=== PATIENT | female | born 1975 | race Caucasian/White ===

== ENCOUNTER 2016-09-21 20:07 | Emergency (ER) | payer OTHER ==
--- NOTE | 2016-09-21 21:59 | DIAGNOSTIC IMAGING REPORT ---
PROCEDURE: CT PELVIS WITH CONTRAST INDICATION: PELVIC PAIN TECHNIQUE: 125 ml Isovue 300 administered IV and axial scans were obtained through the pelvis with coronal and sagittal re-formations. COMPARISON: None. FINDINGS: There is perirectal soft tissue thickening along the medial aspect of the left buttock but no evidence of an abscess. Appendix not clearly identified but no evidence of acute appendicitis. IUD in place. Normal adnexa and bladder. No inflammatory changes or free fluid. Osseous structures are unremarkable IMPRESSION: 1. Cellulitis/phlegmon on the medial aspect of the left buttock but no evidence of an abscess 2. Results discussed with NICOLE Barger
--- NOTE | 2016-09-21 23:27 | ED ORDER SUMMARY ---
..... Patient: MYRTLE ARREDONDO OrderSheet [facility] VisitID: [id number] [place] [address] 41y, F Registration Date/Time: 09/21/2016 ORDER SHEET Weight: 75.7 kg (stated) Allergies: Codeine, Sulfa Antibiotics GENERAL ORDERS: CBC w Diff Urgent (20:29 09/21/2016 EKoroleva P.A.-C) (Ack 20:32 CHagerty ER Register Repairer) (20:46 EHassan R.N.) BMP Urgent (20:29 09/21/2016 EKoroleva P.A.-C) (Ack 20:32 CHagerty ER Register Repairer) (20:46 EHassan R.N.) CT Pelvis w Cont (rectal abscess/ mass) (20:39 09/21/2016 EKoroleva P.A.-C) (Ack 20:42 CHagerty ER Register Repairer) (21:24 EHassan R.N.) POC - Urine hCG (20:53 09/21/2016 EKoroleva P.A.-C) (21:18 EHassan R.N.) PCT (Procalcitonin) Urgent (21:15 09/21/2016 EKoroleva P.A.-C) (21:22 CHagerty ER Register Repairer) Lactate, Serum Urgent (21:15 09/21/2016 EKoroleva P.A.-C) (Ack 21:22 CHagerty ER Register Repairer) (22:01 EHassan R.N.) Culture, Wound Surface (Buttock) (left) Urgent (22:56 09/21/2016 EKoroleva P.A.-C) (Ack 22:59 CHagerty ER Register Repairer) (23:04 EHassan R.N.) MEDICATION ORDERS: Clindamycin PO 300 mg (NOW) (23:26 09/21/2016 EKoroleva P.A.-C) (23:52 EHassan R.N.) IV FLUIDS: IV NS : initial bolus 1000 mL (1000 mL/hr), then 1000 mL/hr for X1 (NOW); Juanjose (20:29 09/21/2016 EKoroleva P.A.-C) (20:46 EHassan R.N.) Dilaudid IV 1 mg (HIGH ALERT MEDICATION, NOW) (20:29 09/21/2016 EKoroleva P.A.-C) (20:46 EHassan R.N.) Dilaudid IV 1 mg (HIGH ALERT MEDICATION, NOW) (21:15 09/21/2016 EKoroleva P.A.-C) (21:22 EHassan R.N.) Valium IV 2 mg (HIGH ALERT MEDICATION, NOW) (22:06 09/21/2016 EKoroleva P.A.-C) (Ack 22:49 JQuivey R.N.) (22:53 JQuivey R.N.) Dilaudid IV 1 mg (HIGH ALERT MEDICATION, NOW) (22:06 09/21/2016 EKoroleva P.A.-C) (Ack 22:49 JQuivey R.N.) (22:53 JQuivey R.N.) ORDER SHEET NOTES: [Electronically signed by Mary Anne Lewis R.N. (23:53 09/21/2016)] [Electronically signed by Christiane Newton P.A.-C (23:53 09/21/2016)] [Electronically locked/signed by Mary Anne Lewis R.N. (23:53 09/21/2016)]
--- NOTE | 2016-09-21 23:27 | ED CLINICAL REPORT ---
Clinical Report - Physicians/Mid Levels [facility] [address] [place] [address] 09/21/2016 20:08 Patient: MYRTLE ARREDONDO Time Seen: 20:30 Sep 21 2016. Arrived- By private vehicle. HISTORY OF PRESENT ILLNESS Chief Complaint: SKIN RASH. This started just prior to arrival and is still present. (Patient presents pain and swelling to her rectum over the last 2 days, spontaneous drainage from the area. Patient presents history of similar with previous surgical excision of such. Denies any fevers. Denies any use of sitz bath. Denies any difficulty with bowel movements.). REVIEW OF SYSTEMS No fever, difficulty breathing, hoarseness, nausea or difficulty with urination. All systems otherwise negative, except as recorded above. PAST HISTORY Problems: Abscess. Abscess of axilla. Additional Surgeries: Anal fistula. Cholecystectomy. Allergies: Codeine. Sulfa Antibiotics. ADDITIONAL NOTES The nursing notes have been reviewed. PHYSICAL EXAM Vital Signs: 09/21/2016 20:20 BP: 124/75. HR: 113. RR: 18. O2 saturation: 100%. Temp: 98.9 F. Pain level now: 10/10. Appearance: Alert. ENT: Ears normal. Nose normal. CVS: Normal heart rate and rhythm. Heart sounds normal. Respiratory: No respiratory distress. Rectal: Perianal cellulitis. Rectal exam nontender. No abscess. Skin: Skin warm. Erythema (tender just left of anus area of erythema, with warmth.). Cellulitis. Extremities: Extremities nontender. Neuro: Oriented X 3. LABS, X-RAYS, AND EKG Laboratory Tests: CBC w Diff: (ALPESH: 09/21/2016 20:45) ( MsgRcvd 09/21/2016 21:14) Final results Test Result Flag Units (Reference) WHITE BLOOD COUNT 24.3 H K/uL (4.5-11.5) RED BLOOD COUNT 4.40 M/uL (4.00-5.20) HEMOGLOBIN 13.4 gm/dL (12.0-16.0) HEMATOCRIT 40.3 % (36.0-46.0) MEAN CELL VOLUME 92 fL (80-100) MEAN CORPUSCULAR HGB 31 pg (26-34) MEAN CORPUSCULAR HGB CONC 33 g/dL (31-37) RED CELL DISTRIBUTION WIDTH 12.4 % (11.6-14.8) PLATELET COUNT 413 H K/uL (150-400) NEUTROPHIL % 83.3 H % (50-75) LYMPH % 9.9 L % (25-40) MONO % 5.1 % (3-14) EOSINOPHIL % 1.3 % (0-4) BASOPHIL % 0.4 % (0-2) [id number]: (ALPESH: 09/21/2016 20:45) ( MsgRcvd 09/21/2016 21:49) Final results Test Result Flag Units (Reference) PROCALCITONIN <0.5 ng/mL (0-0.5) PCT Concentration: Interpretation : Risk/option for action PCT <=0.5 ng/mL : Systemic : Low risk forinfection(sepsis): progression to severeis not likely. : systemic infection.Local bacterial : CAUTION-PCT levelsinfection is : below 0.5 ng/mL do notpossible. : exclude an infection,because localizedinfections (withoutsystemic signs) may beassociated with suchlow levels. If PCT ismeasured very earlyafter a bacterialchallenge (usually <6hours), these valuesmay still be low. Inthis case PCT shouldbe re-assessed 6-24hours later. PCT >0.5 and : Systemic infection: Moderate risk for<= 2 ng/mL : (sepsis) is : progression to severepossible, but : systemic infection.other conditions : The patient should beare known to : closely monitoredelevate PCT. : both clinically andby re-assessing PCTwithin 6-24 hours. PCT > 2 ng/mL : Systemic infection: High risk for(sepsis) is likely: progression to severeunless other : systemic infection.causes are known. : PCT >= 10 ng/mL : Important systemic: High likelihood ofinflammatory : severe sepsis orresponse, almost : septic shock.exclusively due to:severe bacterial :sepsis or septic :shock. : BMP: (ALPESH: 09/21/2016 20:45) ( MsgRcvd 09/21/2016 21:20) Final results Test Result Flag Units (Reference) GLUCOSE 118 H mg/dL (70-110) BUN 6 L mg/dL (7-18) CREATININE 0.6 mg/dL (0.6-1.3) Estimated GFR >60 mL/min Estimated GFR- >60 mL/min Note: Persistent reduction over 3 months in eGFR<60 mL/min/1.73 m2 defines CKD. Patients with eGFR values>=60 mL/min/1.73 m2 may also have CKD if evidence ofpersistent proteinuria. Additional information may be foundat www.kidney.org. SODIUM 143 mmol/L (136-145) POTASSIUM 4.0 mmol/L (3.5-5.1) CHLORIDE 106 mmol/L (98-107) CARBON DIOXIDE 27 mmol/L (21-32) CALCIUM 8.8 mg/dL (8.5-10.1) . Note - Tests: (CT PELVIS: IMPRESSION: 1. Cellulitis/phlegmon on the medial aspect of the left buttock but no evidence of an abscess 2. Results discussed with Rosendo Newton, PAC Electronically Final signed by:Eamon Mcknight MD 09/21/2016 9:58:38 PM). PROGRESS AND PROCEDURES Incision & Drainage of Abscess: Time: 22:09 Sep 21 2016. Time-out completed immediately before the procedure. The abscess is located (marty-rectal). The risks of the procedure, benefits and alternatives were explained. Consent was obtained. Parenteral Dilaudid administered. Local anesthesia provided using 1% lidocaine. The abscess was incised with a #11 surgical blade. A small amount of pus was drained. Sample obtained for cultures. Course of Care: Previous Staph 2014, with sensitivity to bactrim. Patient here in the emergency department with pain, area of swelling and abscess likely, there is drainage drainage, examined with Dr. Montero, area was incised after lidocaine with 30-gauge. Drainage. Culture Previous culture with staff known MRSA. Patient presented clindamycin, will start clindamycin again. Patient urged to do sitz bath at home. Leukocytosis with no signs of lactic acidosis or pro calcitonin and elevation. Patient now normal cardiac,Sirs criteria met, nonseptic otherwise. Antibiotics started. 09/21/2016 23:40 BP: 104/54. HR: 78. RR: 14. O2 saturation: 100%. Temp: 98.7 F. Pain level now: 6/10. Patient is stable. Symptoms better. Patient/family counseled. Disposition: Discharged. Condition: good. CLINICAL IMPRESSION Abscess to the perirectal region. INSTRUCTIONS (sitz bath follow up with dr in 2-3 days). Prescription Medications: Zofran (orally disintegrating tablets) 4 mg: take 1 orally every 6 hours for 5 days. Dispense fifteen (15). No refill. Substitution is permissible. Clindamycin 300 mg: take 1 capsule orally every 8 hours for 10 days. No refill. Oxycodone 5 mg tablets: take 1 orally every 6 hours as needed for pain. Dispense twenty (20). No refill. OTC Medications: Colace 100 mg capsules (available over the counter): take 1 capsule orally, twice daily and for 10 days, as needed for constipation, until symptoms improve. No refill. Substitution is permissible. Follow-up: Follow up with your doctor in three days. Understanding of the discharge instructions verbalized by patient. (Electronically signed by Christiane Newton P.A.-C 09/21/2016 23:53)
--- NOTE | 2016-09-21 23:27 | ED ORDER SUMMARY ---
..... Patient: MYRTLE ARREDONDO OrderSheet [facility] VisitID: [id number] [place] [address] 41y, F Registration Date/Time: 09/21/2016 ORDER SHEET Weight: 75.7 kg (stated) Allergies: Codeine, Sulfa Antibiotics GENERAL ORDERS: CBC w Diff Urgent (20:29 09/21/2016 EKoroleva P.A.-C) (Ack 20:32 CHagerty ER Import Coordination And Production Head) (20:46 EHassan R.N.) BMP Urgent (20:29 09/21/2016 EKoroleva P.A.-C) (Ack 20:32 CHagerty ER Import Coordination And Production Head) (20:46 EHassan R.N.) CT Pelvis w Cont (rectal abscess/ mass) (20:39 09/21/2016 EKoroleva P.A.-C) (Ack 20:42 CHagerty ER Import Coordination And Production Head) (21:24 EHassan R.N.) POC - Urine hCG (20:53 09/21/2016 EKoroleva P.A.-C) (21:18 EHassan R.N.) PCT (Procalcitonin) Urgent (21:15 09/21/2016 EKoroleva P.A.-C) (21:22 CHagerty ER Import Coordination And Production Head) Lactate, Serum Urgent (21:15 09/21/2016 EKoroleva P.A.-C) (Ack 21:22 CHagerty ER Import Coordination And Production Head) (22:01 EHassan R.N.) Culture, Wound Surface (Buttock) (left) Urgent (22:56 09/21/2016 EKoroleva P.A.-C) (Ack 22:59 CHagerty ER Import Coordination And Production Head) (23:04 EHassan R.N.) MEDICATION ORDERS: Clindamycin PO 300 mg (NOW) (23:26 09/21/2016 EKoroleva P.A.-C) (23:52 EHassan R.N.) IV FLUIDS: IV NS : initial bolus 1000 mL (1000 mL/hr), then 1000 mL/hr for X1 (NOW); Juanjose (20:29 09/21/2016 EKoroleva P.A.-C) (20:46 EHassan R.N.) Dilaudid IV 1 mg (HIGH ALERT MEDICATION, NOW) (20:29 09/21/2016 EKoroleva P.A.-C) (20:46 EHassan R.N.) Dilaudid IV 1 mg (HIGH ALERT MEDICATION, NOW) (21:15 09/21/2016 EKoroleva P.A.-C) (21:22 EHassan R.N.) Valium IV 2 mg (HIGH ALERT MEDICATION, NOW) (22:06 09/21/2016 EKoroleva P.A.-C) (Ack 22:49 JQuivey R.N.) (22:53 JQuivey R.N.) Dilaudid IV 1 mg (HIGH ALERT MEDICATION, NOW) (22:06 09/21/2016 EKoroleva P.A.-C) (Ack 22:49 JQuivey R.N.) (22:53 JQuivey R.N.) ORDER SHEET NOTES: [Electronically signed by Mary Anne Lewis R.N. (23:53 09/21/2016)] [Electronically signed by Christiane Newton P.A.-C (23:53 09/21/2016)] [Electronically locked/signed by Mary Anne Lewis R.N. (23:53 09/21/2016)]
--- NOTE | 2016-09-21 23:27 | ED NURSING NOTES ---
Clinical Report - Nurses [facility] [address] [place] [address] 09/21/2016 20:08 Patient: MYRTLE ARREDONDO TRIAGE Triage time 2020 PM. Acuity: LEVEL 3. Chief Complaint: (cyst in between buttocks). Alert. No acute distress. SEPSIS SCREEN: Sepsis Screen. Negative (no infection suspected/documented). --20:28 Mary Anne Lewis R.N. 20:20 09/21/16. BP: 124/75. HR: 113. RR: 18. O2 saturation: 100%. Temp: 98.9 F (oral). Pain level now: 02/18. --20:28 Mary Anne Lewis R.N. Weight: 75.7 kg stated. Height/Length: 67 inches Per Patient. BMI: 26.2. --20:21 Mary Anne Lewis R.N. Medications None. --23:53 Mary Anne Lewis R.N. Allergies Codeine. Sulfa Antibiotics. --20:22 Mary Anne Lewis R.N. Medication/allergy information source: the patient. --20:28 Mary Anne Lewis R.N. History Arrived by private vehicle. Historian: patient. Unaccompanied. Primary physician (None). ( Pt states shaved about a week ago and approximately 3 days ago noticed a bump/cyst like in between her left buttocks area which is causing her pain and discomfort. Pt has had some chills, constipation and feeling nauseous. Pt states that had something similar which end it up having to have surgery. Here to get it checked out). This is a new problem. (3). She has had fever. No weakness, cough, difficulty breathing or skin rash. Denies muscle aches. Treatment ETL DATABASE DEVELOPER: (aleve). PAST MEDICAL HX: Immunizations: up-to-date. SOCIAL HX: Heavy tobacco smoker- less than 1 pack per day. No alcohol use or drug use. No infectious disease exposure. ABUSE ASSESSMENT: No report of abuse. SELF HARM ASSESSMENT: A self harm assessment was performed. The patient answered "no" to the question "Do you have thoughts of harming or killing yourself?" and "Have you recently had thoughts about harming or killing others?". FALL RISK ASSESSMENT: Fall risk assessment completed. No fall risk identified. NUTRITIONAL RISK ASSESSMENT: The nutritional risk assessment revealed no deficiencies. FUNCTIONAL ASSESSMENT: Functional assessment: no impairments noted. LEARNING NEEDS ASSESSMENT: The learning needs assessment revealed no barriers. SKIN INTEGRITY ASSESSMENT: Skin integrity risk assessment completed. No skin integrity risk identified. --20:28 Mary Anne Lewis R.N. PROBLEMS: Abscess. Abscess of axilla. --20:22 Mary Anne Lewis R.N. ADDITIONAL SURGERIES: Anal fistula. Cholecystectomy. --20:22 Mary Anne Lewis R.N. Interventions ID band on patient. --20:28 Mary Anne Lewis R.N. PHYSICAL ASSESSMENT Ambulatory to room. GENERAL / NEURO / PSYCH: Alert. Oriented X 4. Appears in pain. HEENT: Mucous membranes are pink. RESPIRATORY: Respirations not labored. Chest nontender. Breath sounds within normal limits. CVS: Capillary refill less than 2 seconds. Pulses within normal limits. GI / : Abdomen soft and nontender. SKIN: Skin intact. Skin is warm and dry. Normal skin turgor. --20:31 Mary Anne Lewis R.N. NURSING PROGRESS NOTES The initial plan of care for this patient has been created. Patient gowned. Warming measures: blanket applied. Reassurance given. Two patient identifiers checked. Call light placed in reach. Side rails up x 1. Bed placed in lowest position. Patient ready for evaluation- PA notified. --20:31 Mary Anne Lewis R.N. 20:41 09/21/2016 Site #1 started via IV in the left antecubital space with an 20g angiocath; two attempts. Blood drawn: rainbow set. Labeled in the presence of the patient and sent to the lab. --20:46 Mary Anne Lewis R.N. 20:46 09/21/2016 Started bag #1 1000 mL IV Fluids IV NS (Saline); at 1000 mL/hr over 1 hour(s) via site #1 via IV pump. Allergies verified and confirmed 5 rights. Completed per protocol. --20:46 Mary Anne Lewis R.N. 20:46 09/21/2016 Dilaudid (HYDROmorphone HCl PF) IVP 1 mg given over 30 second(s) via site #1. Allergies verified, confirmed 5 rights and sedative warning given to the patient. IV patency established. IV site checked: no pain, redness, or swelling. IV flushed thoroughly pre- and post-medication administration. IVP given by RN. --20:46 Mary Anne Lewis R.N. Patient informed of need for urine sample. --20:57 Cliff Marino R.N. ( POC neg, waiting on CT). --21:19 Mary Anne Lewis R.N. 21:22 09/21/2016 Dilaudid (HYDROmorphone HCl PF) IVP 1 mg given over 30 second(s) via site #1. Allergies verified, confirmed 5 rights and sedative warning given to the patient. IV patency established. IV site checked: no pain, redness, or swelling. IV flushed thoroughly pre- and post-medication administration. IVP given by RN. --21:22 Mary Anne Lewis R.N. 21:22 09/21/16. BP: 104/58. HR: 81. RR: 14. O2 saturation: 100% on room air. Temp: 98.3 F. Pain level now: 8. --21:24 Mary Anne Lewis R.N. Reassurance given. The patient is calm. Overall patient status- she states feels the same. Patient transported to CT. (3 PM). Two patient identifiers checked. Call light placed in reach. --21:24 Mary Anne Lewis R.N. 21:00 09/21/2016 Dilaudid IVP Response: no adverse reaction symptoms are the same. The patient feels the same. --22:02 Mary Anne Lewis R.N. 22:02 09/21/2016 Dilaudid IVP Response: no adverse reaction pain is improving. Symptoms have improved the patient feels the same. --22:02 Mary Anne Lewis R.N. Patient returned from CT. ([id number]). --22:02 Mary Anne Lewis R.N. 22:48 09/21/2016 Valium (Diazepam) IVP 2 mg given over 2 minute(s) via site #1. Allergies verified, confirmed 5 rights and sedative warning given to the patient. IV patency established. IV site checked: no pain, redness, or swelling. IV flushed thoroughly pre- and post-medication administration. --22:53 Cliff Marino R.N. 22:50 09/21/2016 Dilaudid (HYDROmorphone HCl PF) IVP 1 mg given over 2 minute(s) via site #1. Allergies verified, confirmed 5 rights and sedative warning given to the patient. IV patency established. IV site checked: no pain, redness, or swelling. IV flushed thoroughly pre- and post-medication administration. --22:53 Cliff Marino R.N. 22:56 09/21/2016 IV Fluids IV NS Bag Change: bag #1 infused. Total amount infused: 1000. STARTED bag #2 at 1000 mL/hr. --22:56 Cliff Marino R.N. 23:04 09/21/16. BP: 110/64 (regular adult cuff) taken on the left arm, via an automated monitor, while lying. HR: 87. RR: 14. O2 saturation: 100% on room air. Temp: 98.7 F (oral). Pain level now: 11/18. --23:05 Mary Anne Lewis R.N. Pulse oximeter and NIBP monitor placed on patient. Reassurance given. The patient is calm and resting quietly. Overall patient status is the same- she states feels better. ( Valium and dilaudid given as ordered. Will monitor). Patient identifiers checked. --23:05 Mary Anne Lewis R.N. 23:42 09/21/2016 Clindamycin PO Capsules 300 mg given. Allergies verified and confirmed 5 rights. --23:52 Mary Anne Lewis R.N. 23:42 09/21/2016 IV Fluids IV NS Discontinued: bag #2 infused upon discharge. Total amount infused: 1800 mL. IV patency established. IV site checked: no pain, redness, or swelling. IV flushed thoroughly. --23:52 Mary Anne Lewis R.N. DISPOSITION / DISCHARGE 23:43 09/21/2016 Site #1 removed upon discharge. Manual pressure, pressure dressing, bandaid and bandage applied. --23:43 Mary Anne Lewis R.N. Departure time: 2353 PM. Condition at departure: improved and stable. The goals identified in the patient's plan of care were met. No learning barriers present. Discharge instructions provided and reviewed with the patient. Reviewed medication(s) side effects, precautions, dosing and course information. Prescription(s) given to the patient. Activity restrictions reviewed. Patient verbalized understanding. Written instructions provided in Armenian. The patient was discharged by the physician accounts receivable assistant. She was discharged home and accompanied by internet site designer. She left the Emergency Department ambulatory and via private vehicle. Optical Goods Drill Operator driving. FALL RISK ASSESSMENT: Fall risk assessment completed. No fall risk identified. --23:52 Mary Anne Lewis R.N. 23:40 09/21/16. BP: 104/54. HR: 78. RR: 14. O2 saturation: 100% on room air. Temp: 98.7 F (oral). Pain level now: 10/19. --23:52 Mary Anne Lewis R.N. Locked/Released at 09/21/2016 23:53 by Mary Anne Lewis R.N.
--- NOTE | 2016-09-21 23:54 | ED MED RECONCILIATION SUMMARY ---
Patient: MYRTLE ARREDONDO Medication Reconciliation Report [facility] VisitID: [id number] [address] [place] [address] 41y, F Registration Date/Time: 09/21/2016 Weight: 75.7 kg Height/Length: 67 in. BMI: 26.2 ALLERGIES: Codeine, Sulfa Antibiotics The patient's Home Medications are listed below: NONE. The source(s) of the original Home Medication information: patient The following Medications were given to the patient in the Emergency Department: IV NS IV Fluids bolus 0, then 1000 mL/hr, administered: 09/21/2016 8:46:00 PM Dilaudid [IVP] IVP 1 mg, administered: 09/21/2016 8:46:00 PM Dilaudid [IVP] IVP 1 mg, administered: 09/21/2016 9:22:00 PM Valium [IVP] IVP 2 mg, administered: 09/21/2016 10:48:00 PM Dilaudid [IVP] IVP 1 mg, administered: 09/21/2016 10:50:00 PM Clindamycin [PO] PO 300 mg, administered: 09/21/2016 11:42:00 PM The following Medications were prescribed to the patient: Zofran (orally disintegrating tablets) 4 mg: take 1 orally every 6 hours for 5 days. Dispense fifteen (15). No refill. Substitution is permissible. -- Christiane Newton, P.A.-C Clindamycin 300 mg: take 1 capsule orally every 8 hours for 10 days. No refill. -- Christiane Newton, P.A.-C Colace 100 mg capsules (available over the counter): take 1 capsule orally, twice daily and for 10 days, as needed for constipation, until symptoms improve. No refill. Substitution is permissible. -- Christiane Newton, P.A.-C Oxycodone 5 mg tablets: take 1 orally every 6 hours as needed for pain. Dispense twenty (20). No refill. -- Christiane Newton, P.A.-C
--- NOTE | 2016-09-21 23:54 | ED MAR SUMMARY ---
..... Medication Administration Record [facility] [address] [place] [address] Patient: MYRTLE ARREDONDO Visit ID: [id number] 41y, F Weight: 75.7 kg Height/Length: 67 in BMI: 26.2 ALLERGIES: Codeine, Sulfa Antibiotics Start 20:46 09/21/2016 Mary Anne Lewis R.N., Stop 23:42 09/21/2016 Mary Anne Lewis R.N. Medication Administered: IV NS (SALINE), Dose: IV Fluids over 1 hour(s), Rate: 1000 mL/hr, Dispensed: 1000 mL bag, Site: #1 left AC. Medication Ordered: IV NS : initial bolus 1000 mL (1000 mL/hr), then 1000 mL/hr for X1 (NOW); Juanjose. Given 20:46 09/21/2016 Mary Anne Lewis R.N. Medication Administered: DILAUDID [IVP] (HYDROMORPHONE HCL PF), Dose: 1 mg IVP over 30 second(s), Site: #1 left AC. Medication Ordered: Dilaudid IV 1 mg (HIGH ALERT MEDICATION, NOW). Given 21:09/21/2016 Mary Anne Lewis R.N. Medication Administered: DILAUDID [IVP] (HYDROMORPHONE HCL PF), Dose: 1 mg IVP over 30 second(s), Site: #1 left AC. Medication Ordered: Dilaudid IV 1 mg (HIGH ALERT MEDICATION, NOW). Given 22:48 09/21/2016 Cliff Marino R.N. Medication Administered: VALIUM [IVP] (DIAZEPAM), Dose: 2 mg IVP over 2 minute(s), Site: #1 left AC. Medication Ordered: Valium IV 2 mg (HIGH ALERT MEDICATION, NOW). Given 22:50 09/21/2016 Cliff Marino R.N. Medication Administered: DILAUDID [IVP] (HYDROMORPHONE HCL PF), Dose: 1 mg IVP over 2 minute(s), Site: #1 left AC. Medication Ordered: Dilaudid IV 1 mg (HIGH ALERT MEDICATION, NOW). Given 23:09/21/2016 Mary Anne Lewis R.N. Medication Administered: CLINDAMYCIN [PO], Dose: 300 mg Capsules PO. Medication Ordered: Clindamycin PO 300 mg (NOW).
--- NOTE | 2016-09-21 23:54 | ED DISCHARGE INSTRUCTIONS ---
Patient: MYRTLE ARREDONDO General Instructions [facility] VisitID: [id number] [place] [address] 41y, F Registration Date/Time: 09/21/2016 Abscess to the perirectal region. INSTRUCTIONS (sitz bath follow up with dr in 2-3 days). Prescription Medications: Zofran (orally disintegrating tablets) 4 mg: take 1 orally every 6 hours for 5 days. Dispense fifteen (15). No refill. Substitution is permissible. Clindamycin 300 mg: take 1 capsule orally every 8 hours for 10 days. No refill. Oxycodone 5 mg tablets: take 1 orally every 6 hours as needed for pain. Dispense twenty (20). No refill. OTC Medications: Colace 100 mg capsules (available over the counter): take 1 capsule orally, twice daily and for 10 days, as needed for constipation, until symptoms improve. No refill. Substitution is permissible. Follow-up: Follow up with your doctor in three days. Understanding of the discharge instructions verbalized by patient. ADDITIONAL INFORMATION Abscess [Incision & Drainage] An abscess (sometimes called a boil) occurs when bacteria get trapped under the skin and begin to grow. Pus forms inside the abscess as the body responds to the bacteria. An abscess can occur with an insect bite, ingrown hair, blocked oil gland, pimple, cyst, or puncture wound. Treatment of your abscess has required an incision to drain the pus. If the abscess pocket was large, a gauze packing may have been inserted. This will need to be removed and possibly replaced on your next visit. Antibiotics are not required in the treatment of a simple abscess, unless the infection is spreading into the skin around the wound (known as cellulitis). Healing of the wound will take about one to two weeks depending on the size of the abscess. Healthy tissue will grow from the bottom and sides of the opening until it seals over. Home Care: The wound may drain for the first two days. Cover the wound with a clean dry dressing. If the dressing becomes soaked with blood or pus, change it. If a gauze packing was placed inside the abscess cavity, you may be advised to remove it yourself. You may do this in the shower. Once the packing is removed, you should wash the area in the shower or bath 3 to 4 times a day, until the skin opening has closed. If you were prescribed antibiotics, take them as directed until they are all gone. You may use acetaminophen (Tylenol) or ibuprofen (Motrin, Advil) to control pain, unless another pain medicine was prescribed. [ NOTE: If you have liver disease or ever had a stomach ulcer, talk with your doctor before using these medicines.] Follow Up with your doctor as advised by our staff. If a gauze packing was inserted in your wound, it should be removed in 1-2 days. Check your wound every day for the signs of worsening infection listed below. Get Prompt Medical Attention if any of the following occur: Increasing redness or swelling Red streaks in the skin leading away from the wound Increasing local pain or swelling Continued pus draining from the wound two days after treatment Fever of 100.4F (38C) or higher, or as directed by your healthcare provider Ondansetron Oral disintegrating tablet What is this medicine? ONDANSETRON (on GERSON se talat) is used to treat nausea and vomiting caused by chemotherapy. It is also used to prevent or treat nausea and vomiting after surgery. How should I use this medicine? These tablets are made to dissolve in the mouth. Do not try to push the tablet through the foil backing. With dry hands, peel away the foil backing and gently remove the tablet. Place the tablet in the mouth and allow it to dissolve, then swallow. While you may take these tablets with water, it is not necessary to do so. Talk to your bat carrier regarding the use of this medicine in children. Special care may be needed. What side effects may I notice from receiving this medicine? Side effects that you should report to your doctor or health career specialist as soon as possible: allergic reactions like skin rash, itching or hives, swelling of the face, lips, or tongue breathing problems dizziness fast or irregular heartbeat feeling faint or lightheaded, falls fever and chills swelling of the hands and feet tightness in the chest Side effects that usually do not require medical attention (report to your doctor or health career specialist if they continue or are bothersome): constipation or diarrhea headache What may interact with this medicine? Do not take this medicine with any of the following medications: -apomorphine -cisapride -dofetilide -dronedarone -pimozide -thioridazine -ziprasidone This medicine may also interact with the following medications: -carbamazepine -phenytoin -rifampicin -tramadol -other medicines that prolong the QT interval (cause an abnormal heart rhythm) What if I miss a dose? If you miss a dose, take it as soon as you can. If it is almost time for your next dose, take only that dose. Do not take double or extra doses. Where should I keep my medicine? Keep out of the reach of children. Store between 2 and 30 degrees C (36 and 86 degrees F). Throw away any unused medicine after the expiration date. What should I tell my health care provider before I take this medicine? They need to know if you have any of these conditions: heart disease history of irregular heartbeat liver disease low levels of magnesium or potassium in the blood an unusual or allergic reaction to ondansetron, granisetron, other medicines, foods, dyes, or preservatives or trying to get breast-feeding What should I watch for while using this medicine? Check with your doctor or health career specialist as soon as you can if you have any sign of an allergic reaction. Clindamycin Hydrochloride Oral capsule What is this medicine? CLINDAMYCIN (KLIN da ERUM sin) is a lincosamide antibiotic. It is used to treat certain kinds of bacterial infections. It will not work for colds, flu, or other viral infections. How should I use this medicine? Take this medicine by mouth with a full glass of water. Follow the directions on the prescription label. You can take this medicine with food or on an empty stomach. If the medicine upsets your stomach, take it with food. Take your medicine at regular intervals. Do not take your medicine more often than directed. Take all of your medicine as directed even if you think your are better. Do not skip doses or stop your medicine early. Talk to your bat carrier regarding the use of this medicine in children. Special care may be needed. What side effects may I notice from receiving this medicine? Side effects that you should report to your doctor or health career specialist as soon as possible: allergic reactions like skin rash, itching or hives, swelling of the face, lips, or tongue dark urine pain on swallowing redness, blistering, peeling or loosening of the skin, including inside the mouth unusual bleeding or bruising unusually weak or tired yellowing of eyes or skin Side effects that usually do not require medical attention (report to your doctor or health career specialist if they continue or are bothersome): diarrhea itching in the rectal or genital area joint pain nausea, vomiting stomach pain What may interact with this medicine? chloramphenicol erythromycin kaolin products What if I miss a dose? If you miss a dose, take it as soon as you can. If it is almost time for your next dose, take only that dose. Do not take double or extra doses. Where should I keep my medicine? Keep out of the reach of children. Store at room temperature between 20 and 25 degrees C (68 and 77 degrees F). Throw away any unused medicine after the expiration date. What should I tell my health care provider before I take this medicine? They need to know if you have any of these conditions: kidney disease liver disease stomach problems like colitis an unusual or allergic reaction to clindamycin, lincomycin, or other medicines, foods, dyes like tartrazine or preservatives or trying to get breast-feeding What should I watch for while using this medicine? Tell your doctor or healthcare professional if your symptoms do not start to get better or if they get worse. Do not treat diarrhea with over the counter products. Contact your doctor if you have diarrhea that lasts more than 2 days or if it is severe and watery. Docusate Sodium Oral tablet What is this medicine? DOCUSATE (doc CUE sayt) is stool softener. It helps prevent constipation and straining or discomfort associated with hard or dry stools. How should I use this medicine? Take this medicine by mouth with a glass of water. Follow the directions on the label. Take your doses at regular intervals. Do not take your medicine more often than directed. Talk to your bat carrier regarding the use of this medicine in children. While this medicine may be prescribed for children as young as 2 years for selected conditions, precautions do apply. What side effects may I notice from receiving this medicine? Side effects that you should report to your doctor or health career specialist as soon as possible: allergic reactions like skin rash, itching or hives, swelling of the face, lips, or tongue Side effects that usually do not require medical attention (report to your doctor or health career specialist if they continue or are bothersome): diarrhea stomach cramps throat irritation What may interact with this medicine? mineral oil What if I miss a dose? If you miss a dose, take it as soon as you can. If it is almost time for your next dose, take only that dose. Do not take double or extra doses. Where should I keep my medicine? Keep out of the reach of children. Store at room temperature between 15 and 30 degrees C (59 and 86 degrees F). Throw away any unused medicine after the expiration date. What should I tell my health care provider before I take this medicine? They need to know if you have any of these conditions: nausea or vomiting severe constipation stomach pain sudden change in bowel habit lasting more than 2 weeks an unusual or allergic reaction to docusate, other medicines, foods, dyes, or preservatives or trying to get breast-feeding What should I watch for while using this medicine? Do not use for more than one week without advice from your doctor or health career specialist. If your constipation returns, check with your doctor or health career specialist. Drink plenty of water while taking this medicine. Drinking water helps decrease constipation. Stop using this medicine and contact your doctor or health career specialist if you experience any rectal bleeding or do not have a bowel movement after use. These could be signs of a more serious condition. You have been given the following additional information: Abscess, Incision And Drainage Ondansetron Oral disintegrating tablet Clindamycin Hydrochloride Oral capsule Docusate Sodium Oral tablet (Electronically signed by Christiane Newton P.A.-C 09/21/2016 23:53)
--- NOTE | 2016-09-21 23:54 | ED MED RECONCILIATION SUMMARY ---
Patient: MYRTLE ARREDONDO Medication Reconciliation Report [facility] VisitID: [id number] [address] [place] [address] 41y, F Registration Date/Time: 09/21/2016 Weight: 75.7 kg Height/Length: 67 in. BMI: 26.2 ALLERGIES: Codeine, Sulfa Antibiotics The patient's Home Medications are listed below: NONE. The source(s) of the original Home Medication information: patient The following Medications were given to the patient in the Emergency Department: IV NS IV Fluids bolus 0, then 1000 mL/hr, administered: 09/21/2016 8:46:00 PM Dilaudid [IVP] IVP 1 mg, administered: 09/21/2016 8:46:00 PM Dilaudid [IVP] IVP 1 mg, administered: 09/21/2016 9:22:00 PM Valium [IVP] IVP 2 mg, administered: 09/21/2016 10:48:00 PM Dilaudid [IVP] IVP 1 mg, administered: 09/21/2016 10:50:00 PM Clindamycin [PO] PO 300 mg, administered: 09/21/2016 11:42:00 PM The following Medications were prescribed to the patient: Zofran (orally disintegrating tablets) 4 mg: take 1 orally every 6 hours for 5 days. Dispense fifteen (15). No refill. Substitution is permissible. -- Christiane Newton, P.A.-C Clindamycin 300 mg: take 1 capsule orally every 8 hours for 10 days. No refill. -- Christiane Newton, P.A.-C Colace 100 mg capsules (available over the counter): take 1 capsule orally, twice daily and for 10 days, as needed for constipation, until symptoms improve. No refill. Substitution is permissible. -- Christiane Newton, P.A.-C Oxycodone 5 mg tablets: take 1 orally every 6 hours as needed for pain. Dispense twenty (20). No refill. -- Christiane Newton, P.A.-C
--- NOTE | 2016-09-21 23:54 | ED DISCHARGE INSTRUCTIONS ---
Patient: MYRTLE ARREDONDO General Instructions [facility] VisitID: [id number] [place] [address] 41y, F Registration Date/Time: 09/21/2016 Abscess to the perirectal region. INSTRUCTIONS (sitz bath follow up with dr in 2-3 days). Prescription Medications: Zofran (orally disintegrating tablets) 4 mg: take 1 orally every 6 hours for 5 days. Dispense fifteen (15). No refill. Substitution is permissible. Clindamycin 300 mg: take 1 capsule orally every 8 hours for 10 days. No refill. Oxycodone 5 mg tablets: take 1 orally every 6 hours as needed for pain. Dispense twenty (20). No refill. OTC Medications: Colace 100 mg capsules (available over the counter): take 1 capsule orally, twice daily and for 10 days, as needed for constipation, until symptoms improve. No refill. Substitution is permissible. Follow-up: Follow up with your doctor in three days. Understanding of the discharge instructions verbalized by patient. ADDITIONAL INFORMATION Abscess [Incision & Drainage] An abscess (sometimes called a boil) occurs when bacteria get trapped under the skin and begin to grow. Pus forms inside the abscess as the body responds to the bacteria. An abscess can occur with an insect bite, ingrown hair, blocked oil gland, pimple, cyst, or puncture wound. Treatment of your abscess has required an incision to drain the pus. If the abscess pocket was large, a gauze packing may have been inserted. This will need to be removed and possibly replaced on your next visit. Antibiotics are not required in the treatment of a simple abscess, unless the infection is spreading into the skin around the wound (known as cellulitis). Healing of the wound will take about one to two weeks depending on the size of the abscess. Healthy tissue will grow from the bottom and sides of the opening until it seals over. Home Care: The wound may drain for the first two days. Cover the wound with a clean dry dressing. If the dressing becomes soaked with blood or pus, change it. If a gauze packing was placed inside the abscess cavity, you may be advised to remove it yourself. You may do this in the shower. Once the packing is removed, you should wash the area in the shower or bath 3 to 4 times a day, until the skin opening has closed. If you were prescribed antibiotics, take them as directed until they are all gone. You may use acetaminophen (Tylenol) or ibuprofen (Motrin, Advil) to control pain, unless another pain medicine was prescribed. [ NOTE: If you have liver disease or ever had a stomach ulcer, talk with your doctor before using these medicines.] Follow Up with your doctor as advised by our staff. If a gauze packing was inserted in your wound, it should be removed in 1-2 days. Check your wound every day for the signs of worsening infection listed below. Get Prompt Medical Attention if any of the following occur: Increasing redness or swelling Red streaks in the skin leading away from the wound Increasing local pain or swelling Continued pus draining from the wound two days after treatment Fever of 100.4F (38C) or higher, or as directed by your healthcare provider Ondansetron Oral disintegrating tablet What is this medicine? ONDANSETRON (on GERSON se talat) is used to treat nausea and vomiting caused by chemotherapy. It is also used to prevent or treat nausea and vomiting after surgery. How should I use this medicine? These tablets are made to dissolve in the mouth. Do not try to push the tablet through the foil backing. With dry hands, peel away the foil backing and gently remove the tablet. Place the tablet in the mouth and allow it to dissolve, then swallow. While you may take these tablets with water, it is not necessary to do so. Talk to your unit control clerk regarding the use of this medicine in children. Special care may be needed. What side effects may I notice from receiving this medicine? Side effects that you should report to your doctor or health child care associate teacher as soon as possible: allergic reactions like skin rash, itching or hives, swelling of the face, lips, or tongue breathing problems dizziness fast or irregular heartbeat feeling faint or lightheaded, falls fever and chills swelling of the hands and feet tightness in the chest Side effects that usually do not require medical attention (report to your doctor or health child care associate teacher if they continue or are bothersome): constipation or diarrhea headache What may interact with this medicine? Do not take this medicine with any of the following medications: -apomorphine -cisapride -dofetilide -dronedarone -pimozide -thioridazine -ziprasidone This medicine may also interact with the following medications: -carbamazepine -phenytoin -rifampicin -tramadol -other medicines that prolong the QT interval (cause an abnormal heart rhythm) What if I miss a dose? If you miss a dose, take it as soon as you can. If it is almost time for your next dose, take only that dose. Do not take double or extra doses. Where should I keep my medicine? Keep out of the reach of children. Store between 2 and 30 degrees C (36 and 86 degrees F). Throw away any unused medicine after the expiration date. What should I tell my health care provider before I take this medicine? They need to know if you have any of these conditions: heart disease history of irregular heartbeat liver disease low levels of magnesium or potassium in the blood an unusual or allergic reaction to ondansetron, granisetron, other medicines, foods, dyes, or preservatives or trying to get breast-feeding What should I watch for while using this medicine? Check with your doctor or health child care associate teacher as soon as you can if you have any sign of an allergic reaction. Clindamycin Hydrochloride Oral capsule What is this medicine? CLINDAMYCIN (KLIN da ERUM sin) is a lincosamide antibiotic. It is used to treat certain kinds of bacterial infections. It will not work for colds, flu, or other viral infections. How should I use this medicine? Take this medicine by mouth with a full glass of water. Follow the directions on the prescription label. You can take this medicine with food or on an empty stomach. If the medicine upsets your stomach, take it with food. Take your medicine at regular intervals. Do not take your medicine more often than directed. Take all of your medicine as directed even if you think your are better. Do not skip doses or stop your medicine early. Talk to your unit control clerk regarding the use of this medicine in children. Special care may be needed. What side effects may I notice from receiving this medicine? Side effects that you should report to your doctor or health child care associate teacher as soon as possible: allergic reactions like skin rash, itching or hives, swelling of the face, lips, or tongue dark urine pain on swallowing redness, blistering, peeling or loosening of the skin, including inside the mouth unusual bleeding or bruising unusually weak or tired yellowing of eyes or skin Side effects that usually do not require medical attention (report to your doctor or health child care associate teacher if they continue or are bothersome): diarrhea itching in the rectal or genital area joint pain nausea, vomiting stomach pain What may interact with this medicine? chloramphenicol erythromycin kaolin products What if I miss a dose? If you miss a dose, take it as soon as you can. If it is almost time for your next dose, take only that dose. Do not take double or extra doses. Where should I keep my medicine? Keep out of the reach of children. Store at room temperature between 20 and 25 degrees C (68 and 77 degrees F). Throw away any unused medicine after the expiration date. What should I tell my health care provider before I take this medicine? They need to know if you have any of these conditions: kidney disease liver disease stomach problems like colitis an unusual or allergic reaction to clindamycin, lincomycin, or other medicines, foods, dyes like tartrazine or preservatives or trying to get breast-feeding What should I watch for while using this medicine? Tell your doctor or healthcare professional if your symptoms do not start to get better or if they get worse. Do not treat diarrhea with over the counter products. Contact your doctor if you have diarrhea that lasts more than 2 days or if it is severe and watery. Docusate Sodium Oral tablet What is this medicine? DOCUSATE (doc CUE sayt) is stool softener. It helps prevent constipation and straining or discomfort associated with hard or dry stools. How should I use this medicine? Take this medicine by mouth with a glass of water. Follow the directions on the label. Take your doses at regular intervals. Do not take your medicine more often than directed. Talk to your unit control clerk regarding the use of this medicine in children. While this medicine may be prescribed for children as young as 2 years for selected conditions, precautions do apply. What side effects may I notice from receiving this medicine? Side effects that you should report to your doctor or health child care associate teacher as soon as possible: allergic reactions like skin rash, itching or hives, swelling of the face, lips, or tongue Side effects that usually do not require medical attention (report to your doctor or health child care associate teacher if they continue or are bothersome): diarrhea stomach cramps throat irritation What may interact with this medicine? mineral oil What if I miss a dose? If you miss a dose, take it as soon as you can. If it is almost time for your next dose, take only that dose. Do not take double or extra doses. Where should I keep my medicine? Keep out of the reach of children. Store at room temperature between 15 and 30 degrees C (59 and 86 degrees F). Throw away any unused medicine after the expiration date. What should I tell my health care provider before I take this medicine? They need to know if you have any of these conditions: nausea or vomiting severe constipation stomach pain sudden change in bowel habit lasting more than 2 weeks an unusual or allergic reaction to docusate, other medicines, foods, dyes, or preservatives or trying to get breast-feeding What should I watch for while using this medicine? Do not use for more than one week without advice from your doctor or health child care associate teacher. If your constipation returns, check with your doctor or health child care associate teacher. Drink plenty of water while taking this medicine. Drinking water helps decrease constipation. Stop using this medicine and contact your doctor or health child care associate teacher if you experience any rectal bleeding or do not have a bowel movement after use. These could be signs of a more serious condition. You have been given the following additional information: Abscess, Incision And Drainage Ondansetron Oral disintegrating tablet Clindamycin Hydrochloride Oral capsule Docusate Sodium Oral tablet (Electronically signed by Christiane Newton P.A.-C 09/21/2016 23:53)
--- NOTE | 2016-09-21 23:54 | ED MAR SUMMARY ---
..... Medication Administration Record [facility] [address] [address] Patient: MYRTLE ARREDONDO Visit ID: [id number] 41y, F Weight: 75.7 kg Height/Length: 67 in BMI: 26.2 ALLERGIES: Codeine, Sulfa Antibiotics Start 20:46 09/21/2016 Mary Anne Lewis R.N., Stop 23:42 09/21/2016 Mary Anne Lewis R.N. Medication Administered: IV NS (SALINE), Dose: IV Fluids over 1 hour(s), Rate: 1000 mL/hr, Dispensed: 1000 mL bag, Site: #1 left AC. Medication Ordered: IV NS : initial bolus 1000 mL (1000 mL/hr), then 1000 mL/hr for X1 (NOW); Juanjose. Given 20:46 09/21/2016 Mary Anne Lewis R.N. Medication Administered: DILAUDID [IVP] (HYDROMORPHONE HCL PF), Dose: 1 mg IVP over 30 second(s), Site: #1 left AC. Medication Ordered: Dilaudid IV 1 mg (HIGH ALERT MEDICATION, NOW). Given 21:09/21/2016 Mary Anne Lewis R.N. Medication Administered: DILAUDID [IVP] (HYDROMORPHONE HCL PF), Dose: 1 mg IVP over 30 second(s), Site: #1 left AC. Medication Ordered: Dilaudid IV 1 mg (HIGH ALERT MEDICATION, NOW). Given 22:48 09/21/2016 Cliff Marino R.N. Medication Administered: VALIUM [IVP] (DIAZEPAM), Dose: 2 mg IVP over 2 minute(s), Site: #1 left AC. Medication Ordered: Valium IV 2 mg (HIGH ALERT MEDICATION, NOW). Given 22:50 09/21/2016 Cliff Marino R.N. Medication Administered: DILAUDID [IVP] (HYDROMORPHONE HCL PF), Dose: 1 mg IVP over 2 minute(s), Site: #1 left AC. Medication Ordered: Dilaudid IV 1 mg (HIGH ALERT MEDICATION, NOW). Given 23:09/21/2016 Mary Anne Lewis R.N. Medication Administered: CLINDAMYCIN [PO], Dose: 300 mg Capsules PO. Medication Ordered: Clindamycin PO 300 mg (NOW).
== END 2016-09-21 23:55 | disposition home or self-care (01) ==
LOC: ED SRH 20:07
DX: K61.1 Rectal abscess (principal); Z86.14 Personal history of Methicillin resistant Staphylococcus aureus infection; F17.210 Nicotine dependence, cigarettes, uncomplicated; Z88.5 Allergy status to narcotic agent; Z88.2 Allergy status to sulfonamides
CPT/HCPCS: 90047; 90131; 90309; 92031; 93004; 95059